=== PATIENT | male | born 1990 | race Caucasian/White ===

== ENCOUNTER 2017-03-27 12:12 | Emergency (ER) | payer OTHER | END 2017-03-27 13:58 | disposition home or self-care (01) | LOC: ER1 12:12 | DX: J40 Bronchitis, not specified as acute or chronic (principal); F17.210 Nicotine dependence, cigarettes, uncomplicated; Z88.0 Allergy status to penicillin | CPT/HCPCS: 71020; 96372; 99283; J0696; J1100 ==

== ENCOUNTER → 2017-04-01 | Outpatient (CLI) | payer OTHER | LOC: LAB 00:10 | DX: Z02.83 Encounter for blood-alcohol and blood-drug test (principal) | CPT/HCPCS: 36415 ==

== ENCOUNTER → 2021-10-12 | Outpatient (CLI) | payer OTHER | LOC: SLEEP 09:52 | DX: G47.33 Obstructive sleep apnea (adult) (pediatric) (principal) | CPT/HCPCS: 95811 ==